=== PATIENT | male | born 1975 | race Caucasian/White ===

== ENCOUNTER 2019-05-20 07:15 | Outpatient (CLI) | payer MEDICAID, SELFPAY ==
--- NOTE | 2019-05-20 08:07 | DI.RAD_ITS ---
EXAM: XR LUMBAR SPINE COMPLETE INDICATION: LOWER BACK PAIN, M54.5. COMPARISON: No exams were available for comparison TECHNIQUE: 2D digital imaging was performed. FINDINGS: There are 5 lumbar type vertebral bodies. The disc spaces are well maintained. No spondylolysis, sp ondylolisthesis or scoliosis is seen. There are small endplate osteophytes. Mild degenerative chan es are seen of the SI joints. IMPRESSION: Mild degenerative disc changes.
== END 2019-05-20 07:35 ==
PROVIDERS: PCP Nurse Practitioner Family; Visit Provider Physician Assistant Medical
DX: M54.5 Low back pain (principal); M53.3 Sacrococcygeal disorders, not elsewhere classified; M51.36 Other intervertebral disc degeneration, lumbar region
CPT/HCPCS: 72110

== ENCOUNTER 2019-05-30 08:21 | Emergency (ER) | payer OTHER, MEDICAID, SELFPAY ==
[2019-05-30 08:24] VITALS: BP 103/72; PULSE 65; RESP 18; TEMP 36.5; O2SAT 96
--- NOTE | 2019-05-30 09:04 | ED.GENADUL_ITS ---
Discharge Plan Disposition Patient Disposition: HOME Condition: Good Discharge Details Chief Complaint: Nk/Back Pain Clinical Impression: Closed sacral fracture Primary Care Provider: Milad Santa ED Provider: Ginger Reynoso Home Meds and New Rx's Prescriptions: No Action naproxen sodium [Aleve] 220 MG tablet 440 mg PO DAILY RF: 0 No Known Home Meds RF: 0 Discharge Instructions Instructions: Sacral Fracture (ED) Additional Instructions: Motrin or Tylenol for discomfort if needed. Rest activities as tolerated. Please limit activities for 1 week for comfort. Ice for the first 5 days then may introduce heat to the area. Follow-up with orthopedic doctor for reevaluation. Return for any worsening, concerns or difficulty tolerating pain if needed sooner Stand Alone Forms: Work Release Referrals: Kristian Cardoza MD [ [facility] STAFF PHYSICIAN] - Medical Decision Making This is a very pleasant 43-year-old gentleman presenting to the emergency room after a slip and fall on ice this morning landing on his lower back. Patient presents for focal complaints in his lower back. On exam has lumbar midline tenderness as well as SI joint tenderness. Patient does have pain with straight leg raise. No red flags. No obvious neurologic deficits on exam. Patient denies any head or neck complaints. No other extremity complaints. No numbness, tingling or weakness of arms or legs immediately after since fall. Patient does report a history of chronic back pain recently diagnosed with arthritis. patient to take ibuprofen prior to arrival. Patient offered additional medication for comfort at this time and declines. Plan to obtain x- ray of lumbar spine and SI joints. Patient agrees with plan of care. X-ray and CT both Show question of nondisplaced sacral fracture superiorly. This does clinically correlate with patient's site of pain Spoke with Dr. Cardoza regarding patient's CT findings as well as x-ray. He recommends crutches although patient declines. He will follow-up with patient in the office as needed for follow-up purposes. Rice encouraged, use of donut encouraged. Offered muscle relaxant or narcotics and declines would prefer Motrin Tylenol management of his pain. 1 week work note provided. Encouraged rest. Again declined crutches and this is not an unstable fracture therefore that is not unreasonable. The patient was stable and requested discharge. Prior to discharge, my usual and customary return precautions were reviewed with the patient - this included follow-up instructions and reasons to return to the Emergency Department if conditions worsens, does not improve as expected, or other new concerns arise. HPI General Date/Time Provider Initiated Documentation: 05/30/19 08:54 . HPI Narrative: Is a 43-year-old patient presenting to the emergency room this evening after a slip and fall on ice this morning. Patient slipped, fell backwards striking his lower back on the ground. Patient denies striking his head or neck. Denies any extremity injury. 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 Patient does report chronic back pain but is concerned primarily with the fall this morning. Patient indicates his lower back and left side of his back as maximum site of tenderness. Patient denies any radicular symptoms into his legs. Denies any numbness, tingling or weakness. Patient reports when sitting 7 out of 10 pain when changing position and standing or walking 9 out of 10 pain. Patient did take ibuprofen this morning prior to arrival. Again no other sites of pain reported or extremity injuries. Related Data Home Medications Medication Instructions Recorded Confirmed Unknown [No Known Home Meds] 01/08/15 07/02/15 naproxen sodium [Aleve] 440 mg PO DAILY 12/31/16 05/30/19 Allergies Allergy/AdvReac Type Severity Reaction Status Date / Time No Known Drug Allergies Allergy Unverified 05/30/19 08:27 General Stated Complaint: Nk/Back Pain DOMENICA: 3 Review of Systems All systems reviewed & are unremarkable except as noted in HPI and below Constitutional Constitutional: Denies fatigue, Denies headache(s) and Denies weakness Eyes Eyes: Denies blurry vision and Denies diplopia ENT Ears, Nose, Mouth, and Throat: Denies vertigo, Denies dizziness, Denies headache(s) and Denies neck pain Musculoskeletal Musculoskeletal: Denies abnormal gait, Reports back pain, Denies deformity, Denies neck pain, Denies numbness and Denies tingling Neurologic Neurologic: Denies abnormal gait, Denies vertigo, Denies dizziness, Denies headache(s), Denies focal weakness, Denies numbness, Denies tingling, Denies paresthesias and Denies weakness Endocrine Endocrine: Denies fatigue ON LICENSE OF [facility] Medical History Asthma HX tobacco use Surgical History (Updated 02/18/18 @ 14:34 by [employer] [place]) Arthroplasty of knee right x 2 or 3 Arthroscopy, Shoulder right Social History Smoking/Tobacco Use Status: Former Tobacco Use Drug use: Never Exam Narrative Exam Narrative: CONST: Healthy appearing patient, in no acute distress. Well hydrated. Alert and oriented. NECK: Normal visual inspection. FROM. Trachea midline. No Midline tenderness. CHEST: Normal insepection of the chest. RESP: Normal respiratory effort. Speaking full sentences. No cough. No audible wheezing. No retractions. MUSCULOSKELETAL: Normal Gait. FROM of all extremities. Straight leg raise intact on the right without pain. Straight leg raise on the left with pain at approximately 90 degrees. DTRs intact and equal bilaterally. No foot drop. Sensation intact and equal bilaterally. Back: No cervical or thoracic pain with palpation along the midline of the spine. No step-offs. Moderate lumbar tenderness with palpation overlying the spine as well as left SI joint tenderness. No sciatic pain bilaterally. No obvious step-offs, ecchymosis or swelling. SKIN: Normal. Dry. No rashes. NEURO: Alert and awake. Speech clear. PSYCH: Normal affect. Cooperative. Course Vital Signs Vital signs: Vital Signs Temperature 36.5 C 05/30/19 08:24 Pulse 65 05/30/19 08:24 Respiratory Rate 18 05/30/19 08:24 Blood Pressure 103/72 05/30/19 08:24 Pulse Oximetry 96 05/30/19 08:24 Temperature 36.5 C 05/30/19 08:24 Temperature Source Skin 05/30/19 08:24 Pulse 65 05/30/19 08:24 Respiratory Rate 18 05/30/19 08:24 Respiratory Effort 05/30/19 08:28 Blood Pressure 103/72 05/30/19 08:24 Blood Pressure Position Sitting 05/30/19 08:24 Pulse Oximetry 96 05/30/19 08:24 Oxygen Delivery Method Room Air 05/30/19 08:24 Oxygen Flow Rate 0 05/30/19 08:24 Pain Level 8 05/30/19 08:24
--- NOTE | 2019-05-30 09:11 | DI.RAD_ITS ---
EXAM: XR LUMBAR SPINE COMPLETE INDICATION: Pain after fall. COMPARISON: XR LUMBAR SPINE COMPLETE from 05/20/2019 TECHNIQUE: 2D digital imaging was performed. FINDINGS: There is no evidence of fracture, spondylolysis or spondylolisthesis. There is no significant scolio sis. The disc spaces are well maintained. There are small endplate osteophytes. IMPRESSION: Mild degenerative changes. No acute abnormality.
--- NOTE | 2019-05-30 09:11 | DI.RAD_ITS ---
EXAM: XR SACROILIAC JOINTS INDICATION: pain, fall, left SI joint pain. COMPARISON: No exams were available for comparison TECHNIQUE: 2D digital imaging was performed. FINDINGS: SI joints are not widened. No fracture is identified. IMPRESSION: Negative sacroiliac joints.
--- NOTE | 2019-05-30 09:33 | DI.VRAD_ITS ---
PROCEDURE INFORMATION: Exam: XR Bilateral Sacroiliac Joints, 3 or More Views Exam date and time: 05/30/2019 9:18 AM Age: 43 years old Clinical indication: Other: Pain after fall TECHNIQUE: Imaging protocol: XR Bilateral XR of the sacroiliac joints, 3 or more views. COMPARISON: No relevant prior studies available. FINDINGS: Bones/joints: Lucency through the superior aspect of the left golden sacrum may represent nondisplaced fracture. Degenerative changes in the sacroiliac joints Soft tissues: Normal. IMPRESSION: Lucency through the superior aspect of the left golden sacrum may represent nondisplaced fracture. Dictated and Authenticated by: Nolan Morris MD. Ordering:TYRON Miles MD
--- NOTE | 2019-05-30 09:35 | DI.VRAD_ITS ---
PROCEDURE INFORMATION: Exam: XR Lumbosacral Spine, 4 or 5 Views Exam date and time: 05/30/2019 9:17 AM Age: 43 years old Clinical indication: Injury or trauma; Initial encounter; Blunt trauma (contusions or hematomas); Injury details: Chronic low back pain exacerbated by fall today TECHNIQUE: Imaging protocol: XR of the lumbosacral spine, 4 or 5 views. COMPARISON: CR XR LUMBAR SPINE COMPLETE 05/20/2019 8:07 AM FINDINGS: Vertebrae: There is no evidence of acute fracture.There is no evidence of malalignment or dislocation. Intervertebral disc spaces are maintained.. Minimal anterior osteophyte formation Soft tissues: Normal. IMPRESSION: 1. There is no evidence of acute fracture.There is no evidence of malalignment or dislocation. 2. Intervertebral disc spaces are maintained. Dictated and Authenticated by: Nolan Morris MD. Ordering:TYRON Miles MD
[2019-05-30] MEDS: Acetaminophen 500 MG TAB 1000 MG PO (10:06)
--- NOTE | 2019-05-30 11:37 | DI.CT_ITS ---
EXAM: CT PELVIC WO CLINICAL HISTORY: r/o superior sacrum fracture, fall TECHNIQUE: Noncontrast COMPARISON: No exams were available for comparison FINDINGS: No fracture is identified. The SI joints and pubic symphysis appear intact. No soft tissue hematom a is seen. Bladder, prostate and bowel are unremarkable. IMPRESSION: Negative CT of the pelvis.
[2019-05-30 11:45] VITALS: BP 116/77; RESP 16; O2SAT 99
--- NOTE | 2019-05-30 11:50 | DI.VRAD_ITS ---
PROCEDURE INFORMATION: Exam: CT Pelvis Without Contrast; Skeletal Exam date and time: 05/30/2019 11:34 AM Age: 43 years old Clinical indication: Other: R/O superior sacrum fracture, fall TECHNIQUE: Imaging protocol: Computed tomography images of the pelvis without contrast. Exam focused on the skeletal structures. Radiation optimization: All CT scans at this facility use at least one of these dose optimization techniques: automated exposure control; mA and/or kV adjustment per patient size (includes targeted exams where dose is matched to clinical indication); or iterative reconstruction. COMPARISON: CR XR LUMBAR SPINE COMPLETE 05/30/2019 9:11 AM. Sacral series from May 30 demonstrated possible fracture of the superior left golden sacrum. FINDINGS: Stomach and bowel: Bowel wall thickening in the colon may represent colitis versus decompressed bowel. Appendix: Normal appendix Bones/joints: Sacral series from May 30 demonstrated possible nondisplaced fracture of the superior left golden sacrum. There is a lucency in the same area on a few of the coronal images. Image 105 -107. This may represent artifact. Subtle nondisplaced fracture included in the differential but less likely. Soft tissues: Unremarkable. IMPRESSION: 1. Sacral series from May 30 demonstrated possible nondisplaced fracture of the superior left golden sacrum. There is a lucency in the same area on a few of the coronal images. Image 105 -107. This may represent artifact. Subtle nondisplaced fracture included in the differential but less likely. 2. Bowel wall thickening in the colon may represent colitis versus decompressed bowel. Dictated and Authenticated by: Nolan Morris MD. Ordering:TYRON Miles MD
== END 2019-05-30 12:35 | disposition home or self-care (01) ==
PROVIDERS: Emergency Provider Physician Assistant; PCP Physician Assistant Medical
DX: S32.10XA Unspecified fracture of sacrum, initial encounter for closed fracture (principal); W00.0XXA Fall on same level due to ice and snow, initial encounter
CPT/HCPCS: 99285; 72110; 72192; 72202; 99284

== ENCOUNTER 2021-06-25 21:56 | Outpatient (REF) | payer MEDICAID, SELFPAY ==
[2021-06-25 21:28] LABS: HCT 45.6 % (40.0-50.0); MCHC 32.9 % (32.0-36.0); MPV 9.9 fL (8.0-11.0); Platelet Count 259 10^3/uL (130-400); RBC 5.18 10^6/uL (4.36-5.78); RDW 11.9 % (11.8-14.1); RDW-SD 38.7 fL; WBC 5.78 10^3/uL (4.4-10.8)
[2021-06-25 21:39] LABS: ALT 31 U/L (16-63); AST 20 U/L (15-37); Albumin 4.1 g/dL (3.4-5.0); Alkaline Phosphatase 67 U/L (46-116); Anion Gap 8.9 mmol/L (3-11); BUN 13 mg/dL (7-18); Bilirubin, Total 0.4 mg/dL (0.2-1.0); CO2 27.1 mmol/L (21.0-32.0); CREATININE 1.2 mg/dL (0.70-1.30); Calcium 9.1 mg/dL (8.5-10.1); Chloride 105 mmol/L (98-107); Glucose 130 mg/dL (74-106); Lipase 97 U/L (73-393); Potassium 3.8 mmol/L (3.5-5.1); Sodium 141 mmol/L (136-145); Total Protein 7.4 g/dL (6.4-8.2)
== END 2021-06-25 21:57 | disposition home or self-care (01) ==
LOC: LBN 21:56
PROVIDERS: PCP Physician Assistant Medical; Visit Provider Nurse Practitioner Family
DX: R10.32 Left lower quadrant pain (principal); R82.998 Other abnormal findings in urine
CPT/HCPCS: 80053; 83690; 85027; 87086

== ENCOUNTER 2021-06-30 08:23 | Emergency (ER) | payer MEDICAID, SELFPAY ==
[2021-06-30] VITALS (13 sets, daily range): BP systolic 120–136; BP diastolic 69–79; PULSE 70–86; RESP 16; TEMP 37.1; O2SAT 95–97
--- NOTE | 2021-06-30 09:00 | DI.CT_ITS ---
Exam(s) CT ABDOMEN PELVIS W EXAM: CT ABDOMEN PELVIS W CLINICAL HISTORY: RLQ pain TECHNIQUE: Imaging Protocol: Axial computed tomography images with coronal and sagittal reformatted images were created and reviewed CONTRAST MATERIAL: Intravenous: Omnipaque 350 Contrast volume:100 mL Oral: No COMPARISON: CT CT PELVIC WO from 05/30/2019 FINDINGS: ABDOMEN: Lung Bases: Linear atelectasis or scarring is seen in the lung bases. Liver: Normal density. No measurable mass. Portal, Superior Mesenteric, and Splenic Veins: Unremarkable. Gallbladder and Biliary Tract: No radiodense calculus or dilation. Pancreas: Normal density, no abnormal calcifications or inflammatory process. Spleen: Normal. Adrenals: No masses seen. Kidneys: Normal size, contour and axis. No radiodense stones or obstructive uropathy. No masses seen. Abdominal Aorta: Abdominal portion non-dilated. Bowel: No obstruction or bowel wall thickening. There is mild fatty infiltration seen in the barnett o f the duodenum, ileum and cecum. There is a question of mild Pamela inflammatory changes around the di stal ileum. Appendix is unremarkable. There are few scattered diverticula but no evidence of acute d iverticulitis. Peritoneal Cavity: No ascites, collection or mesenteric inflammatory response. No free air. Lymph Nodes: Within normal limits. Bones: Within normal limits for the patient's age. Soft Tissues: Unremarkable. PELVIS: Bladder: Symmetric distention, no gross wall thickening. Reproductive Organs: Unremarkable as visualized. Lymph Nodes: Within normal limits. Bones: Within normal limits for the patient's age. IMPRESSION: 1. Findings suspicious for inflammatory bowel disease seen in the distal ileum. Please correlate wit h the patient's clinical history and symptoms. 2. Normal appendix. RADIATION DOSE DELIVERED: 995.41mGy.cm Total DLP DATA REPOSITORY: All CT scans at this facility are submitted to the National Radiology Data Registry (NRDR) Dose Index Registry (DIR) with the [employer] (ACR). RADIATION OPTIMIZATION: All CT scans at this facility use at least one of these dose optimization te chniques: automated exposure control; mA and/or kV adjustment per patient size (includes targeted exa ms where dose is matched to clinical indication); or iterative reconstruction.
[2021-06-30 09:01] LABS: Abs Immature Grans 0.02 10^3/uL (0.0-0.06); Absolute Basophil Count 0.03 10^3/uL (0.0-0.2); Absolute Eosinophil Count 0.13 10^3/uL (0.0-0.7); Absolute Lymphocyte Count 1.34 10^3/uL (1.2-3.4); Absolute Monocyte Count 0.71 10^3/uL (0.1-0.8); Absolute Neutrophil Count 4.42 10^3/uL (1.2-6.7); Basophils % 0.5; HCT 46.4 % (40.0-50.0); HGB 15.9 g/dL (13.5-17.5); Immature Grans % 0.3; Lymphocytes % 20.2; MCH 29.6 pg (27.0-33.0); MCHC 34.3 % (32.0-36.0); MCV 86.4 fL (80-95); MPV 9.6 fL (8.0-11.0); Monocytes % 10.7; Neutrophils % 66.3; Nucleated RBC 0 %; Platelet Count 248 10^3/uL (130-400); RBC 5.37 10^6/uL (4.36-5.78); RDW 11.7 % (11.8-14.1); RDW-SD 37.2 fL; WBC 6.65 10^3/uL (4.4-10.8)
[2021-06-30 09:06] LABS: Bilirubin Negative (Negative); Blood Negative (Negative); Clarity Clear (Clear); Glucose Negative (Negative); Ketones Negative (Negative); Leukocyte Esterase Negative (Negative); Nitrite Negative (Negative); Urobilinogen 0.2 EU/dL (Up TO 0.2)
[2021-06-30 09:16] LABS: ALT 28 U/L (16-63); AST 15 U/L (15-37); Albumin 3.8 g/dL (3.4-5.0); Alkaline Phosphatase 73 U/L (46-116); Anion Gap 10.5 mmol/L (3-11); BUN 15 mg/dL (7-18); Bilirubin, Total 0.6 mg/dL (0.2-1.0); C-Reactive Protein 1.91 mg/dL (0.0-0.3); CO2 25.5 mmol/L (21.0-32.0); Chloride 103 mmol/L (98-107); Glucose 100 mg/dL (74-106); Sodium 139 mmol/L (136-145); Total Protein 7.9 g/dL (6.4-8.2)
[2021-06-30] MEDS: Omnipaque 350 MG/ML 100 ML BTL IJ (09:24)
[2021-06-30] MEDS: Normal Saline Flush 10 ML SYR IVP (09:28)
[2021-06-30] MEDS: Normal Saline 1,000 ML 1000 ML IV (09:35)
[2021-06-30] MEDS: MORPHine 4 MG/ML SYR IVP (09:35)
--- NOTE | 2021-06-30 09:42 | DI.VRAD_ITS ---
PROCEDURE INFORMATION: Exam: CT Abdomen And Pelvis With Contrast Exam date and time: 06/30/2021 9:10 AM Age: 45 years old Clinical indication: Other: Rlq pain TECHNIQUE: Imaging protocol: Computed tomography of the abdomen and pelvis with contrast. Radiation optimization: All CT scans at this facility use at least one of these dose optimization techniques: automated exposure control; mA and/or kV adjustment per patient size (includes targeted exams where dose is matched to clinical indication); or iterative reconstruction. Contrast material: OMNIPAQUE 350; Contrast volume: 100 ml; Contrast route: INTRAVENOUS (IV); COMPARISON: CT PELVIC WO 05/30/2019 11:37 AM FINDINGS: Lungs: Streaky bibasilar opacities favoring atelectasis. Heart: Heart size is normal. No pericardial effusion. Liver: Normal. No mass. Gallbladder and bile ducts: Normal. No calcified stones. No ductal dilation. Pancreas: Normal. No ductal dilation. Spleen: Small splenule. Normal appearance of the spleen. Adrenal glands: Normal. No mass. Kidneys and ureters: Normal. No hydronephrosis. Stomach and bowel: Stomach is unremarkable. There is mild, patchy fatty infiltration of the wall of the duodenum. Fatty infiltration of the wall of the ileum with mild mucosal hyperemia near the distal ileum with mild pericecal inflammatory changes. There are few small colonic diverticula without evidence of diverticulitis. Appendix: Appendix is normal. Intraperitoneal space: No free air. No significant fluid collection. Vasculature: There is very mild inflammatory appearance of the retroperitoneum about the aorta IVC. Lymph nodes: No enlarged lymph nodes. Urinary bladder: Unremarkable as visualized. Reproductive: Prostate calcifications. Bones/joints: Mild degenerative changes of the spine and hips. No acute osseous findings. Soft tissues: Unremarkable. IMPRESSION: 1. Normal appendix. 2. Fatty infiltration noted within the duodenum, ileum, and cecum. There is mild mucosal hyperemia of the distal ileum with some mild pericecal inflammatory changes. Correlate for history of Crohn's disease. 3. Mild soft tissue stranding posterior to the aorta and IVC without lymphadenopathy. Findings may be reactive in the setting of chronic inflammatory bowel disease or represent early retroperitoneal fibrosis. Dictated and Authenticated by: Charley Mcdowell MD. Ordering:SALVADOR Davis MD
--- NOTE | 2021-06-30 10:26 | NUR.NOTE ---
Susan would like the patient to be evaluated by PCP Milad Santa, next available appointment for Collitis.
--- NOTE | 2021-06-30 10:51 | ED.GENADUL_ITS ---
Discharge Plan Disposition Patient Disposition: HOME Condition: Stable Discharge Details Clinical Impression: Abdominal pain, Colitis Primary Care Provider: Milad Santa ED Provider: Susan Cristina Home Meds and New Rx's Prescriptions: New prednisone 10 mg tablet 10 mg PO DAILY Qty: 38 0RF Rx Instructions: take 4 tablets daily for 7days followed by 2 tablets for 3 days followed by 1 tablet for 4 days and then discontinue oxycodone 5 mg tablet 5 mg PO Q8H PRNQty: 6 0RF Continued naproxen sodium [Aleve] 220 MG tablet 440 mg PO DAILY 0RF amoxicillin 500 mg Capsule 500 mg PO BID 0RF Discharge Instructions Instructions: Abdominal Pain (ED) Additional Instructions: Please follow-up with the surgeon listed below for colonoscopy, this is very important Take the prednisone as prescribed Please bring a stool sample back to our lab to be tested, this will be a better test to determine whether or not you may have inflammatory bowel disease, the concern is you may have Crohn's, however colonoscopy and stool studies can determine this Please also follow-up with your doctor Please return immediately should you have worsening pain, fever, or with any new or worsening symptoms Referrals: Milad Santa PA [Primary Care Provider] - Marisol Tilley DO [ NON-[facility] STAFF PHYSICIAN] - 1 day Discharge Data Discharge Date/Time-TO BE ENTERED AT DEPARTURE: 06/30/21 11:25 Medical Decision Making Patient appears well, his diagnostic lab do not show significant acute abnormality, no leukocytosis, no anemia CRP is mildly elevated, this could be consistent with inflammatory bowel disease as evidenced on patient's CT abdomen and pelvis per radiology interpretation in my review Patient has not been formally diagnosed with IBD but has had been having recurrent abdominal pain for the past several years and does not regularly visit his PCP Discussed admission for IV steroids given his level of discomfort, however patient has declined He prefers to try taper of outpatient prednisone which I have prescribed referred to surgery for colonoscopy He is also given a lab slip to return fecal calprotectin for further evaluation discharged home in stable condition with stable vitals offered admission on 2 separate occasions and has declined, he is alert, oriented, of decisional capacity I have given him a small amount of opiate analgesia and we discussed risk associated with taking opiate medications Given the threshold to return with new or worsening complaints Medical Records Medical records reviewed: Yes I reviewed the patient's medical records. Lab Data Lab results reviewed: Yes I reviewed the patient's lab results. HPI General Date/Time Provider Initiated Documentation: 06/30/21 08:47 . HPI Narrative: This 45-year-old gentleman presents with right lower quadrant pain that started Friday. He has had left lower quadrant pain for the past 2 weeks. He has had intermittent symptoms similar to this but not as persistent over the course of the past 10 years. He denies any blood in stool today. He denies any new mucus in the stool. He describes the pain as sharp. He denies any fever or chills. Loss of movement yesterday. He has had diarrhea intermittently but nothing in the past Related Data Home Medications Medication Instructions Recorded Confirmed naproxen sodium 220 mg tablet 440 mg PO DAILY 12/31/16 06/30/21 (Aleve) amoxicillin 500 mg capsule 500 mg PO BID 06/30/21 06/30/21 oxycodone 5 mg tablet 5 mg PO Q8H PRN #6 tab 06/30/21 prednisone 10 mg tablet 10 mg PO DAILY #38 tab 06/30/21 Previous Rx's Medication Instructions Recorded oxycodone 5 mg tablet 5 mg PO Q8H PRN #6 tab 06/30/21 prednisone 10 mg tablet 10 mg PO DAILY #38 tab 06/30/21 Allergies Allergy/AdvReac Type Severity Reaction Status Date / Time No Known Drug Allergies Allergy Unverified 06/30/21 08:34 General Stated Complaint: Abd Prob DOMENICA: 3 Review of Systems All systems reviewed & are unremarkable except as noted in HPI and below PFSH All Active Problems (Updated 06/30/21 @ 10:32 by ASCENCION Sainz) Abdominal pain (Acute) Colitis (Acute) Medical History (Updated 06/30/21 @ 10:32 by ASCENCION Sainz) Asthma HX tobacco use Surgical History (Updated 02/18/18 @ 14:34 by Almondy DE) Arthroplasty of knee right x 2 or 3 Arthroscopy, Shoulder right Social History Smoking/Tobacco Use Status: Former Tobacco Use Smoking risk assessment performed?: Yes Alcohol Intake: current Alcohol Intake frequency: a few times a month Alcohol type: beer Drug use: Never Substance use type: does not use Do you feel safe at home: Yes Do you feel safe in your relationship?: Yes Exam Const General: cooperative and comfortable Eyes Sclera: sclerae normal Resp Effort & Inspection: normal respiratory effort Cardio Rate: regular rate GI Other: Right lower quadrant abdominal tenderness, no rebound or guarding, mild left lower quadrant abdominal tenderness No abdominal bruit, or pulsatile mass Skin General skin exam: no rashes or lesions noted Neuro General: patient alert and patient oriented x3 Extrem Other: Distal pulses intact Course Vital Signs Vital signs: Vital Signs Temperature 37.1 C 06/30/21 08:28 Pulse 86 06/30/21 08:28 Respiratory Rate 16 06/30/21 08:28 Blood Pressure 120/69 06/30/21 08:28 Pulse Oximetry 97 06/30/21 08:28 Temperature 37.1 C 06/30/21 08:28 Temperature Source Temporal Artery Scan 06/30/21 08:28 Pulse 71 06/30/21 10:16 Respiratory Rate 16 06/30/21 08:28 Respiratory Effort Non-Labored 06/30/21 08:32 Blood Pressure 130/74 06/30/21 10:16 Blood Pressure Mean 88 06/30/21 10:16 Blood Pressure Position Sitting 06/30/21 08:28 Pulse Oximetry 97 06/30/21 10:16 Oxygen Delivery Method Room Air 06/30/21 08:28 Oxygen Flow Rate 0 06/30/21 08:28 Pain Level 5 06/30/21 09:35 Lab/Test Results Lab/Test Results: Laboratory Tests Range/Units 06/30/21 06/30/21 06/30/21 08:40 08:40 08:54 WBC (4.4-10.8) 10^3/uL 6.65 RBC (4.36-5.78) 10^6/uL 5.37 Hgb (13.5-17.5) g/dL 15.9 Hct (40.0-50.0) % 46.4 MCV (80-95) fL 86.4 MCH (27.0-33.0) pg 29.6 MCHC (32.0-36.0) % 34.3 RDW (11.8-14.1) % 11.7 L Plt Count (130-400) 10^3/uL 248 MPV (8.0-11.0) fL 9.6 Immature Gran % 0.3 Neutrophils % 66.3 Lymphocytes % 20.2 Monocytes % 10.7 Eosinophils % 2.0 Basophils % 0.5 Nucleated RBC % % 0 Absolute Neutrophils (1.2-6.7) 10^3/uL 4.42 Absolute Lymphocytes (1.2-3.4) 10^3/uL 1.34 Absolute Monocytes (0.1-0.8) 10^3/uL 0.71 Absolute Eosinophils (0.0-0.7) 10^3/uL 0.13 Absolute Basophils (0.0-0.2) 10^3/uL 0.03 Sodium (136-145) mmol/L 139 Potassium (3.5-5.1) mmol/L 4.0 Chloride (98-107) mmol/L 103 Carbon Dioxide (21.0-32.0) mmol/L 25.5 Anion Gap (3-11) mmol/L 10.5 BUN (7-18) mg/dL 15 Creatinine (0.70-1.30) mg/dL 1.0 Estimated GFR/1.73 m2 (mL/min/1.73m2) >= 60.00 Glucose (74-106) mg/dL 100 Calcium (8.5-10.1) mg/dL 9.0 Total Bilirubin (0.2-1.0) mg/dL 0.6 AST (15-37) U/L 15 ALT (16-63) U/L 28 Alkaline Phosphatase (46-116) U/L 73 C-Reactive Protein (0.0-0.3) mg/dL 1.91 H Total Protein (6.4-8.2) g/dL 7.9 Albumin (3.4-5.0) g/dL 3.8 Urine Color (Yellow) Yellow Urine Clarity (Clear) Clear Urine pH (5-8) 7.0 Ur Specific [place] (1.005-1.025) 1.020 Urine Protein (Negative) mg/dL Negative Urine Ketones (Negative) mg/dL Negative Urine Blood (Negative) Negative Urine Nitrite (Negative) Negative Urine Bilirubin (Negative) Negative Urine Urobilinogen (Up TO 0.2) EU/dL 0.2 Ur Leukocyte Esterase (Negative) Negative Urine Glucose (Negative) mg/dL Negative PAWSS Have you Been Recently Intoxicated or Drunk Within the Last 30 days?: No Have you Ever Experienced Previous Episodes of Alcohol Withdrawal?: No Have you ever Experienced Withdrawal Seizures?: No Have you ever Experienced Delirium Tremens(DT)s?: No Have you ever undergone Alcohol Rehabilitation Treatment (i.e, inpt ot outpatient treatment programs)?: No Have you ever Experienced Blackouts?: No Have you ever Combined Alcohol with other Downers within the last 90 days?: No Have you ever Combined Alcohol with any other Substance of Abuse during the last 90 days?: No Positive Blood Alcohol level on Presentation? [PCS.BAL]: No Evidence of Increased Autonomic Activity (i.e. HR>120, tremor, sweating, agitation, nausea)?: No Result: 0
== END 2021-06-30 11:25 | disposition home or self-care (01) ==
PROVIDERS: Emergency Provider Physician Assistant; PCP Physician Assistant Medical
DX: R10.31 Right lower quadrant pain (principal); K52.9 Noninfective gastroenteritis and colitis, unspecified
CPT/HCPCS: 36415; 80053; 96361; 96374; 99285; 74177; 81003; 85025; 86140; 99284; J2270; J3490

== ENCOUNTER 2021-07-02 11:13 | Emergency (ER) | payer MEDICAID, SELFPAY ==
[2021-07-02 11:24] VITALS: BP 145/85; PULSE 65; RESP 16; TEMP 36.4; O2SAT 97
--- NOTE | 2021-07-02 11:45 | ED.GENADUL_ITS ---
Discharge Plan Disposition Patient Disposition: HOME Condition: Stable Discharge Details Clinical Impression: Abdominal pain Primary Care Provider: Milad Santa ED Provider: Karen Don Home Meds and New Rx's Prescriptions: Continued naproxen sodium [Aleve] 220 MG tablet 440 mg PO DAILY 0RF prednisone 10 mg tablet 10 mg PO DAILY Qty: 38 0RF Rx Instructions: take 4 tablets daily for 7days followed by 2 tablets for 3 days followed by 1 tablet for 4 days and then discontinue oxycodone 5 mg tablet 5 mg PO Q8H PRNQty: 6 0RF Discharge Instructions Instructions: Abdominal Pain (ED) Additional Instructions: Continue to take the prednisone as previously prescribed. Clear liquids for the next 2 to 3 days. After that a bland diet stay away from anything fried, fatty, dairy. Stay away from eating spicy. Please keep your follow-up appointment with general surgery on the as previously scheduled. Follow up with primary care provider in 3-5 days. Return to ED sooner if any worsening or concerns. Increase oral fluids. Please take Tylenol or Ibuprofen with food every 4-6 hours as needed for pain and swelling. Stand Alone Forms: Work Release Referrals: Milad Santa PA [Primary Care Provider] - 3 days Discharge Data Discharge Date/Time-TO BE ENTERED AT DEPARTURE: 07/02/21 15:59 Medical Decision Making 45-year-old male presents to the ER for the second time in 3 days with continued lower bilateral abdominal pain and constipation. Patient states he has not had a bowel movement in over 48 hours. He was seen 2 days ago and was diagnosed with colitis and was prescribed prednisone which he has been taking as directed. Discussed treatment options with patient who verbalizes understanding. I did discuss reCT with oral contrast which he agrees to. Labs will be redrawn to rule out any worsening. Urinalysis 2 days ago showed no leukocytosis or nitrites. He did have a slightly elevated CRP 2 days ago with a value of 1.91. Labs are largely improved except for white blood cell count was just slightly elevated at 10.91, potassium was 3.4, glucose 129, C-reactive is improved at 0.89. The elevated white blood cell count could be due to the prednisone that patient has been taking. Lipase is 61. CT results are noted below. CT CT ABDOMEN PELVIS W from 06/30/2021 FINDINGS: ABDOMEN: Lung Bases: Normal where visualized. Liver: Normal density. No measurable mass. Gallbladder and biliary tract: No radiodense calculus or dilation. Pancreas: Normal density, no abnormal calcifications or inflammatory process. Spleen: Normal. Kidneys: Normal size, contour and axis. No radiodense stones or obstructive uropathy. No masses seen. Adrenal glands: No masses seen. Abdominal Aorta: Abdominal portion non-dilated. PELVIS: Bladder: No gross wall thickening. No calculi.No focal mass. Bowel: Fat deposition in the distal and terminal ileum could be related to previous episodes of inflammation. Stable appearance when compared with 2019. No current evidence of inflammation. No obstruction . Appendix normal.Mild sigmoid diverticulosis. Moderate quantity of stool. Peritoneal cavity: No ascites, collection or mesenteric inflammatory response. Bones: Within normal limits for age. Reproductive organs: Within normal limits. Lymph nodes: Unremarkable. Impression: Fat deposition in the wall of the distal and terminal ileum may be related to prior episodes of inflammation. Findings appear stable when compared with 2019. No acute abnormality is identified.. At this time it does not appear there is any acute process or need for admission at this time. I will encourage to keep general surgery follow-up on the . Patient verbalized understanding, this text was generated using [employer] dictation system, please disregard any oddities of phrase or misspellings. HPI General Mode of arrival: ambulatory . Date/Time Provider Initiated Documentation: 07/02/21 11:21 . Limitations to Documentation: no limitations . Information obtained by: patient, RN notes reviewed and old records reviewed . HPI Narrative: 45-year-old male presents to the ER for the second time in 3 days with continued lower bilateral abdominal pain and constipation. Patient states he has not had a bowel movement in over 48 hours. He was seen 2 days ago and was diagnosed with colitis and was prescribed prednisone which he has been taking as directed. He did take an oxycodone this morning. He denies any vomiting, fever or problems urinating. He states pain radiates into his lower back intermittently. He reports he did call general surgery and has an appointment on July 12. Related Data Home Medications Medication Instructions Recorded Confirmed naproxen sodium 220 mg tablet 440 mg PO DAILY 12/31/16 07/02/21 (Aleve) oxycodone 5 mg tablet 5 mg PO Q8H PRN #6 tab 06/30/21 07/02/21 prednisone 10 mg tablet 10 mg PO DAILY #38 tab 06/30/21 07/02/21 Previous Rx's Medication Instructions Recorded oxycodone 5 mg tablet 5 mg PO Q8H PRN #6 tab 06/30/21 prednisone 10 mg tablet 10 mg PO DAILY #38 tab 06/30/21 Allergies Allergy/AdvReac Type Severity Reaction Status Date / Time No Known Drug Allergies Allergy Unverified 07/02/21 11:28 General Stated Complaint: Abd Prob DOMENICA: 3 Review of Systems All systems reviewed & are unremarkable except as noted in HPI and below PFSH All Active Problems (Updated 07/02/21 @ 15:31 by Karen Don) Abdominal pain (Acute) Colitis (Acute) Medical History Asthma HX tobacco use Surgical History Arthroplasty of knee right x 2 or 3 Arthroscopy, Shoulder right Social History Smoking/Tobacco Use Status: Former Tobacco Use Smoking risk assessment performed?: Yes Alcohol Intake: current Alcohol Intake frequency: a few times a month Alcohol type: beer Drug use: Never Substance use type: does not use Do you feel safe at home: Yes Do you feel safe in your relationship?: Yes Exam Narrative Exam Narrative: Constitutional: Alert and oriented x3. Appears stated age. Normal body habitus. Head: Normocephalic, no trauma. Eyes: Pupils PERRL, Red reflex noted, EOM's intact. Eyelids symmetrical without lesions, discharge, or swelling. ENT: Bilateral TM's WNL, External ear normal to inspection, no mastoid TTP, swelling, or erythema, Nasal turbinates WNL, no nasal discharge. Normal dentition, Posterior pharynx WNL, no exudate. Chest: RRR, Normal S1, S2, distal pulses intact. Resp: Lungs clear to auscultation bilaterally, no wheezes, rales, or rhonchi. Abdomen: Soft, non-distended, hypoactive bowel sounds all 4 quadrants. Mild tenderness with palpation to right lower quadrant left lower quadrant. Musculoskeletal: Normal gait, 5/5 strength to all four extremities. Skin: No suspicious rashes or lesions. Capillary refill less than 2 sec. Neurologic: Cranial nerves II-XII intact. Alert and oriented x 3. Motor: No deficits noted. Sensory: Intact bilaterally all 4 extremities. Reflexes: DTR's intact bilaterally.. Hematologic/Lymphatic: No ecchymosis, no lymphadenopathy. Course Vital Signs Vital signs: Vital Signs Temperature 36.4 C 07/02/21 11:24 Pulse 65 07/02/21 11:24 Respiratory Rate 16 07/02/21 11:24 Blood Pressure 145/85 H 07/02/21 11:24 Pulse Oximetry 97 07/02/21 11:24 Temperature 36.4 C 07/02/21 11:24 Temperature Source Oral 07/02/21 11:24 Pulse 65 07/02/21 11:24 Respiratory Rate 16 07/02/21 11:24 Respiratory Effort 07/02/21 11:24 Blood Pressure 145/85 H 07/02/21 11:24 Blood Pressure Position Sitting 07/02/21 11:24 Pulse Oximetry 97 07/02/21 11:24 Oxygen Delivery Method Room Air 07/02/21 11:24 Oxygen Flow Rate 0 07/02/21 11:24 Pain Level 4 07/02/21 11:40
[2021-07-02] MEDS: Normal Saline 1,000 ML 1000 ML IV (11:57)
[2021-07-02 12:02] LABS: Abs Immature Grans 0.03 10^3/uL (0.0-0.06); Absolute Basophil Count 0.03 10^3/uL (0.0-0.2); Absolute Eosinophil Count 0.03 10^3/uL (0.0-0.7); Absolute Lymphocyte Count 1.61 10^3/uL (1.2-3.4); Basophils % 0.3; Eosinophils % 0.3; HCT 44.9 % (40.0-50.0); HGB 15.1 g/dL (13.5-17.5); Immature Grans % 0.3; Lymphocytes % 14.8; MCHC 33.6 % (32.0-36.0); MCV 86.3 fL (80-95); MPV 9.4 fL (8.0-11.0); Monocytes % 8.2; Neutrophils % 76.1; Nucleated RBC 0 %; Platelet Count 262 10^3/uL (130-400); RDW 11.9 % (11.8-14.1); RDW-SD 37.8 fL; WBC 10.91 10^3/uL (4.4-10.8)
[2021-07-02 12:03] LABS: Absolute Monocyte Count 0.89 10^3/uL (0.1-0.8)
[2021-07-02 12:15] LABS: ALT 23 U/L (16-63); AST 8 U/L (15-37); Albumin 3.6 g/dL (3.4-5.0); Alkaline Phosphatase 63 U/L (46-116); Anion Gap 9.6 mmol/L (3-11); BUN 13 mg/dL (7-18); Bilirubin, Total 0.4 mg/dL (0.2-1.0); C-Reactive Protein 0.89 mg/dL (0.0-0.3); CO2 26.4 mmol/L (21.0-32.0); Chloride 105 mmol/L (98-107); Glucose 129 mg/dL (74-106); Lipase 61 U/L (73-393); Potassium 3.4 mmol/L (3.5-5.1); Sodium 141 mmol/L (136-145); Total Protein 7.7 g/dL (6.4-8.2)
[2021-07-02] MEDS: Breeza Beverage 473 ML BTL PO ×2 (13:21→13:22)
[2021-07-02] MEDS: Omnipaque 350 MG/ML 50 ML BTL PO (13:21)
[2021-07-02 13:52] VITALS: BP 128/71; PULSE 65; RESP 18; TEMP 36.5; O2SAT 95
[2021-07-02] MEDS: Omnipaque 350 MG/ML 100 ML BTL IJ (14:59)
--- NOTE | 2021-07-02 15:03 | DI.CT_ITS ---
Exam(s) CT ABDOMEN PELVIS W EXAM: CT ABDOMEN PELVIS W CLINICAL HISTORY: Constipation, Worsening abd pain. TECHNIQUE: Imaging Protocol: Axial computed tomography images with coronal and sagittal reformatted images were created and reviewed CONTRAST MATERIAL: Intravenous: Omnipaque 350 Contrast volume:100 ml Oral: /yes COMPARISON: CT CT PELVIC WO from 05/30/[address] ABDOMEN PELVIS W from 06/30/2021 FINDINGS: ABDOMEN: Lung Bases: Normal where visualized. Liver: Normal density. No measurable mass. Gallbladder and biliary tract: No radiodense calculus or dilation. Pancreas: Normal density, no abnormal calcifications or inflammatory process. Spleen: Normal. Kidneys: Normal size, contour and axis. No radiodense stones or obstructive uropathy. No masses seen. Adrenal glands: No masses seen. Abdominal Aorta: Abdominal portion non-dilated. PELVIS: Bladder: No gross wall thickening. No calculi.No focal mass. Bowel: Fat deposition in the distal and terminal ileum could be related to previous episodes of infla mmation. Stable appearance when compared with 2019. No current evidence of inflammation. No obstru ction . Appendix normal.Mild sigmoid diverticulosis. Moderate quantity of stool. Peritoneal cavity: No ascites, collection or mesenteric inflammatory response. Bones: Within normal limits for age. Reproductive organs: Within normal limits. Lymph nodes: Unremarkable. Impression: Fat deposition in the wall of the distal and terminal ileum may be related to prior episodes of infla mmation. Findings appear stable when compared with 2019. No acute abnormality is identified.. RADIATION DOSE DELIVERED: 1,248.99mGy.cm Total DLP DATA REPOSITORY: All CT scans at this facility are submitted to the National Radiology Data Registry (NRDR) Dose Index Registry (DIR) with the [employer] (ACR). RADIATION OPTIMIZATION: All CT scans at this facility use at least one of these dose optimization te chniques: automated exposure control; mA and/or kV adjustment per patient size (includes targeted exa ms where dose is matched to clinical indication); or iterative reconstruction.
[2021-07-02 15:40] VITALS: BP 122/74; PULSE 75; RESP 16; TEMP 36.6; O2SAT 96
== END 2021-07-02 15:59 | disposition home or self-care (01) ==
PROVIDERS: Emergency Provider Registered Nurse Emergency; PCP Physician Assistant Medical
DX: R10.31 Right lower quadrant pain (principal); R10.32 Left lower quadrant pain
CPT/HCPCS: 36415; 80053; 83690; 96360; 99285; 74177; 83735; 85025; 86140; 99283; J3490; Q9967

== ENCOUNTER 2021-07-23 01:37 | Outpatient (CLI) | payer MEDICAID, SELFPAY ==
--- NOTE | 2021-07-23 11:00 | ETT_ITS ---
APPROVED REPORT Exam: Exercise Treadmill Patient Location: Out-Patient Room/Bed: Stress Nurse: Chanel Lambert RN Ordering Provider:VINH SLOAN, Contact Number: [phone] BMI: 28.88 Baseline Rhythm: Sinus Rhythm Indications: PREOP, EXERTIONAL CHEST PAIN Medical History Medical History: Colitis, Asthma Cardiac Medications: Omeprazole, Albuterol sulfate inhaler Allergies: No known drug allergies Cardiac Risk Factors: FHX of CAD, Smoking (former) , Asthma Previous Cardiac Procedures: None Pretest Chest Pain Characteristics: No chest pain Exercise History: Indeterminate Physical Disabilities: None Lung Sounds: Clear to auscultation Heart Sounds: Regular Stress Test Details Test: Exercise stress testing was performed using a Andrea protocol. Rest Stress HR Resting HR Supine: 70 bpm Max Heart Rate (APMHR): 174 bpm Resting HR Standin bpm Target HR (85% APMHR): 147 bpm Max HR Achieved: 182 bpm % of APMHR: 104 Recovery HR: 96 bpm HR response to stress: Normal HR response to stress BP Resting BP Supine: 118/68 mmHg Resting BP Standin/68 mmHg Max BP: 182/86 mmHg Recovery BP: 142/68 mmHg BP response to stress: Normal blood pressure response to stress. ECG Resting ECG: Sinus Rhythm Ectopy: None Comment: mild diffuse ST elevations at baseline Stress ECG: Sinus Tachycardia ST Change: No significant ST segment changes noted Arrhythmia: PVCs Recovery ECG: Sinus Rhythm Recovery ST Change: No significant ST segment changes noted Recovery Arrhythmia: None Clinical Reason for Termination: Fatigue Stress Symptoms: General Fatigue Exercise duration: 10 min17 sec Highest Stage Reached: Stage 4: 4.2 mph at 16% grade. Exercise capacity: 12.26 METs Quigley Treadmill Score: 10 Rate Pressure Product: [id number] Stress ECG Conclusion 1. Resting electrocardiogram was within normal limits 2. Patient exercised on the Andrea protocol and completed a workload of 12.26 METS, stopping due to fa tigue 3. Normal heart rate and blood pressure response to exercise. The patient achieved 100% of predicted heart rate for age 4. There was no electrocardiographic evidence of myocardial ischemia 5. There were no significant dysrhythmias Quigley Treadmill Score is 10 which is Low risk. Stress Test Summary STAGE Time (mins) Speed (mph) Grade (%) HR BP SYMPTOMS METS Supine 70 118/68 Standing 81 124/68 1 3 1.7 10 108 138/82 4.6 2 6 2.5 12 129 168/84 7 3 9 3.4 14 167 172/88 10.2 1 min recovery 136 182/86 3 min recovery 98 168/64 6 min recovery 96 142/68
== END 2021-07-23 01:57 ==
PROVIDERS: PCP Physician Assistant Medical; Visit Provider Physical Therapy Assistant
DX: R07.89 Other chest pain (principal); Z01.818 Encounter for other preprocedural examination
CPT/HCPCS: 93017

== ENCOUNTER 2021-07-30 03:06 | Outpatient (CLI) | payer MEDICAID, SELFPAY ==
[2021-07-30 12:40] LABS: Source Nasal/Nares
[2021-07-30 16:06] LABS: COVID-19 PCR Negative (Negative)
== END 2021-07-30 03:07 | disposition home or self-care (01) ==
PROVIDERS: PCP Physician Assistant Medical; Visit Provider Surgery
DX: Z20.822 Contact with and (suspected) exposure to COVID-19 (principal); Z01.818 Encounter for other preprocedural examination
CPT/HCPCS: 87635

== ENCOUNTER 2021-08-01 09:49 | Day surgery (SDC) | payer MEDICAID, SELFPAY ==
--- NOTE | 2021-08-01 06:41 | COLE_ITS ---
Colonoscopy Report Date of procedure: 08/01/21 Pre-op diagnosis general: abdominal pain Post-op diagnosis procedure note: other (mild diverticulosis, polyps) Procedure: Colonoscopy with polypectomy Surgeon: Andie Panda Anesthesia Type: General:No Airway Estimated blood loss (mL): 3 Pathology: other (descending and sigmoid polyp) Complications: None Disposition: same day Indications: The patient is here for Colonoscopy pre-op. He has never had a Colonoscopy. He has no family history of colon cancer. He has been having severe abdominal pain and varied bowel movements for several months which is worsening in severity. Encouraged diet modification to include increasing fruit and vegetable intake.? Discussed ways to add high-protein snacks and meals.? Discussed the benefits of packing a lunch while on the go to ensure healthy options.? Also discussed increasing his water intake on a daily basis with a goal of 100 ounces a day.? Given the patient's symptoms of reflux, also discussed food groups and food types to avoid, to help reduce his symptoms.? Such as avoiding chocolate, caffeine, spicy foods and tomato based products.? Patient verbalized understanding and expressed that he would try these suggestions. Also discussed the option of trialling a low-dose omeprazole once a day at night, to see if this would improve his reflux symptoms.? Patient is agreeable to trying this despite his dislike for taking medications.? He will try this for 1 month and this provider will call to check in and see how this is helping. Given patient's complaints of chest pain on exertion and shortness of breath, patient will require having a stress test prior to his colonoscopy.? Upon further discussions patient did admit that he was supposed to previously have a stress test however he did not follow through with this.? He is unsure as to who may have order this prior.? He reports not seeing his primary care provider in almost 2 years.? Will order stress test and await these results prior to proceeding with? diagnostic colonoscopy. In the meantime the patient will initiate diet changes increase water intake and start taking omeprazole once a day. -Discussed colonoscopy bowel prep as well as the procedure. Discussed possible complications of the procedure to include bleeding, pain, perforation, missed small lesion/polyp, sore throat, aspiration and adverse reaction to the medications. Questions were answered to patient?s satisfaction. No guarantees we re implied or given. Prep: Miralax/Dulcolax Procedure Start Time: 11:40 Procedure End Time: 11:59 Retraction Time: 13 minutes Findings: 2 small polyps mild diverticulosis no inflammation Procedure Description: After informed consent was obtained the patient was taken to the procedure room and placed in a left decubitous position. Monitors were applied and a time out was done. The patients name, date of , procedure, allergies to medications and metal in their body was reviewed. The patient was then sedated. Once sedated and comfortable a rectal exam was done. External exam was normal. Internal exam revealed a normal sphincter tone and no palpable masses. The prostate felt normal. The scope was then introduced and retro-flexed. No internal hemorrhoids, polyps or masses were identified on retro-flexion. The scope was then advanced to the cecum without difficulty. The ileocecal vlave and appendiceal orifice were identified. The prep was adequate. The scope was then slowly retracted over 13 minutes back into the rectum. Polyps were removed with cold forceps in the descending colon and sigmoid colon. There was mild sigmoid diverticulosis noted. The scope was removed and the patient was woken up and taken back to Same day surgery in stable condition. The patient tolerated the procedure well and there were no immediate complications. Follow up: Start Omeprazole. Follow up in 2 weeks in the office
--- NOTE | 2021-08-01 06:43 | W.PM.DSUDISC ---
Discharge Plan Disposition Patient Disposition: HOME Condition: Good Discharge Details Reason For Visit: Colonoscopy Attending Provider: Andie Panda Primary Care Provider: Milad Santa Home Meds and New Rx's Prescriptions: New omeprazole 40 mg capsule,delayed release(DR/EC) 40 mg PO DAILY Qty: 30 0RF Continued cholecalciferol (vitamin D3) 25 mcg (1,000 unit) capsule 25 mcg PO DAILY 0RF ascorbate calcium (vitamin C) 500 mg tablet 500 mg PO DAILY 0RF naproxen sodium [Aleve] 220 MG tablet 440 mg PO DAILY 0RF Discharge Instructions Instructions: Diverticulosis (DC) Additional Instructions: Findings: 2 small polyps mild diverticulosis Follow up: 2-3 weeks Please call if you develop: fevers >101.5 Nausea or Vomiting Abdominal pain that is not transient Rectal bleeding that is more then a tbsp A hard abdomen and inability to pass gas DAY SURGERY UNIT POST ENDOSCOPY INSTRUCTIONS Instructions for everyone who is given Anesthesia: For your safety, please do the following for the next 24 Hours: a. Do not drive or operate dangerous equipment b. Do not drink alcohol beverages or use any recreational drugs for the first 24 hours or while taking pain medications. The medications in your body may have a reaction that can be dangerous. c. Do not make any important decisions or sign any important papers 1. Generally there are no restrictions on your activity after a day or so has gone by, but you may feel a bit fatigued for a few days. 2. After you arrive home you may have a light meal and return to a normal diet as you can tolerate it without feeling sick to your stomach. 3. After surgery, you may feel pain or discomfort. This should be only transient, but if it persists please contact your doctor. 4. If there are any questions regarding the findings of your procedure, please feel free to contact your doctor. 6. If you are unable to contact your doctor with a problem, contact the hospital at [phone]. 7. Continue all your regular medications unless directed otherwise. I understand the above instructions and have no questions. Signature of Patient or Responsible Adult Escort Date/Time Name of Responsible Adult Escort Signature of Nurse Date/Time Activity:: Activity as Tolerated Diet:: high fiber Discharge Orders Discharge Orders: Discharge Order (Routine); Ordered 08/01/21 Ordered By: Andie Panda
[2021-08-01 10:22] VITALS: BP 112/70; PULSE 87; RESP 16; TEMP 36.7; O2SAT 98
[2021-08-01] MEDS: Lactated Ringers 1,000 ML 80 ML IV (10:45)
--- NOTE | 2021-08-01 10:47 | W.ANESPRE ---
General Info Date of Service Date Performed: 08/01/21 Height: 6 ft 2 in Weight: 98.6 kg Body Mass Index (BMI): 27.8 Surgical Procedure: Operation Date: 08/01/21 11:50 Proposed Procedure Side Surgeon p Colonoscopy Andie Panda MD Meds Allergies and Home Medications Allergies Allergy/AdvReac Type Severity Reaction Status Date / Time No Known Drug Allergies Allergy Verified 08/01/21 10:18 Home Medication Medication Instructions Recorded naproxen sodium 220 mg tablet 440 mg PO DAILY 12/31/16 (Aleve) ascorbate calcium (vitamin C) 500 500 mg PO DAILY 07/12/21 mg tablet cholecalciferol (vitamin D3) 25 25 mcg PO DAILY 07/12/21 mcg (1,000 unit) capsule Current Visit Medications: Current Medications Generic Name Dose Route Start Last Admin Trade Name Freq PRN Reason Stop Dose Admin Hyoscyamine Sulfate 0.125 mg 08/01/21 06:44 Hyoscyamine 0.125 Mg Sl/Oral/Chew SL DIRECTED PRN Ringer's Solution 1,000 mls @ 80 mls/hr 08/01/21 06:00 IV 08/30/21 23:59 INFUSION [facility] IV Miscellaneous Supplies 1 each 08/01/21 06:00 Iv Access IV 08/30/21 23:59 DIRECTED CALEB Ondansetron HCl 4 mg 08/01/21 06:44 Ondansetron 4 Mg/2 Ml Vial IVP Q4H PRN PRN Nausea / Vomiting Sodium Chloride 0 ml 08/01/21 06:00 Normal Saline Flush 10 Ml Syr IV 08/30/21 23:59 PRN PRN Sodium Chloride 0 ml 08/01/21 06:00 Normal Saline 10 Ml Vial IJ 08/30/21 23:59 DIRECTED PRN Sterile Water 0 ml 08/01/21 06:00 Water,Injection,Sterile 10 Ml Vial IJ 08/30/21 23:59 DIRECTED PRN PFSH Active Problems Active Problems: Problem Status Onset Code Exertional chest pain R07.9 Pre-op testing Z01.818 Medical History Medical History (Updated 08/01/21 @ 10:33 by Mikey Aiken) Asthma GERD (gastroesophageal reflux disease) HX tobacco use Medical History Comments:: Pt. had exertional chest pain with NEGATIVE stress test 07/23/21. No current chest pain stated by patient at time of Pre-op. Surgical History Surgical History Arthroplasty of knee right x 2 or 3 Arthroscopy, Shoulder right Tobacco Smoking/Tobacco Use Status: Former Tobacco Use Alcohol Alcohol Intake: current Alcohol intake frequency: a few times a month Alcohol type: beer Substance Use Substance use: Never Substance use type: does not use Vital Signs and Lab Results Vital Signs Most Recent Vital Signs in EMR: Most Recent Vital Signs Temp Pulse Resp BP Pulse Ox 36.7 C 87 16 112/70 98 08/01/21 10:22 08/01/21 10:22 08/01/21 10:22 08/01/21 10:22 08/01/21 10:22 Lab Results Blood Type / Crossmatch: No Data to Display Complete Blood Count: White Blood Count 10.91 10^3/uL (4.4-10.8) H 07/02/21 11:57 07/02/21 Red Blood Count 5.20 10^6/uL (4.36-5.78) 07/02/21 11:57 07/02/21 Hemoglobin 15.1 g/dL (13.5-17.5) 07/02/21 11:57 07/02/21 Hematocrit 44.9 % (40.0-50.0) 07/02/21 11:57 07/02/21 Platelet Count 262 10^3/uL (130-400) 07/02/21 11:57 07/02/21 Complete Metabolic Panel: Sodium Level 141 mmol/L (136-145) 07/02/21 11:57 07/02/21 Potassium Level 3.4 mmol/L (3.5-5.1) L 07/02/21 11:57 07/02/21 Chloride Level 105 mmol/L (98-107) 07/02/21 11:57 07/02/21 Carbon Dioxide Level 26.4 mmol/L (21.0-32.0) 07/02/21 11:57 07/02/21 Blood Urea Nitrogen 13 mg/dL (7-18) 07/02/21 11:57 07/02/21 Creatinine 1.0 mg/dL (0.70-1.30) 07/02/21 11:57 07/02/21 Estimated GFR/1.73 m2 >= 60.00 (mL/min/1.73m2) 07/02/21 11:57 07/02/21 Magnesium Level 2.0 mg/dL (1.8-2.4) 07/02/21 11:57 07/02/21 Calcium Level 9.0 mg/dL (8.5-10.1) 07/02/21 11:57 07/02/21 Albumin 3.6 g/dL (3.4-5.0) 07/02/21 11:57 07/02/21 Glucose Level 129 mg/dL (74-106) H 07/02/21 11:57 07/02/21 C-Reactive Protein 0.89 mg/dL (0.0-0.3) H 07/02/21 11:57 07/02/21 Liver Function Panel: Alanine Aminotransferase (ALT/SGPT) 23 U/L (16-63) 07/02/21 11:57 07/02/21 Aspartate Amino Transf (AST/SGOT) 8 U/L (15-37) L 07/02/21 11:57 07/02/21 Coagulation Panel: No Data to Display Cardiac Panel: No Data to Display Arterial Blood Gas: No Data to Display Venous Blood Gas: No Data to Display Pancreas Panel: Lipase 61 U/L (73-393) 07/02/21 11:57 07/02/21 Thyroid Panel: No Data to Display Infectious Disease: Coronavirus (COVID-19)(PCR) Negative (Negative) 07/30/21 11:05 07/30/21 Coronavirus 2019 Source Nasal/Nares 07/30/21 11:05 07/30/21 Blood Cultures: No Data to Display Toxicology Panel: No Data to Display Anesthesia Assessment and Plan Anesthesia History Personal History: No History of Anesthesia Complications Family History: No Family History of Anesthesia Complications Exercise Tolerance Exercise Tolerance: Metabolic Equivalents>4 Pertinent Negatives Pertinent Negatives: No Symptoms of GERD, No Major Cardiovascular Symptoms or Complaints, No Major Pulmonary Symptoms or Complaints (Asthma mild- no limitations, quit smoking 1996) and No History of CVA/TIA Cardiac & Pulmonary Exam Cardiac Exam: Normal S1/S2 Heart Sounds Pulmonary Exam: Clear Bilateral Breath Sounds Implantable Cardiac Device Does patient have a Pacemaker or an ICD?: No Airway Exam Known Difficult Airway: No Mallampati Class: 1 Mouth Opening: Normal (> 3cm) Thyromental Distance: Greater than 3 cm Neck Range of Motion: Full ROM Neck Circumference: Normal Teeth Condition: Normal Dentition and Generalized Poor Dentition Airway Comments: #21/chipped ASA Classification ASA Score: ASA 2 Emergency Case?: No NPO Status NPO Status: NPO Clears >2 hours, Solids >8 hours Anesthesia Plan Resuscitation Status: Full Code Anesthesia Technique: General Anesthesia Airway Planned: Natural Airway Monitors Used: Standard Monitors
[2021-08-01 10:50] VITALS: BMI 27.8
--- NOTE | 2021-08-01 11:54 | BOWEL_PTH ---
PATIENT: Dhiraj Fonseca LOC: [place] U#:[id number] AGE/SX: 46/M ROOM: RE08/01/[address]: Andie Panda MD : [id number] BED: DIS: 08/01/2021 SPEC #: [id number] RECD: 08/01/21 12:57 STATUS: ABDELRAHMAN REQ #: [id number] LAW: 08/01/21 11:[address]: Andie Panda DEPT: Surgical Specimen RECD BY: Susan Lancaster ENTERED: 08/01/21 12:58 SP TYPE: Bowel OTHR DR: Milad Santa Tissues: 1 - BIOPSY BOWEL 2 - BIOPSY BOWEL Procedures: GROSS AND MICRO LEVEL 4 Comments: [id number]
[2021-08-01 12:09] VITALS: PULSE 75; RESP 16; TEMP 36.6; O2SAT 96
--- NOTE | 2021-08-01 12:13 | W.ANESPOSTOP ---
Postoperative Evaluation Date, Time and Location Date Performed: 08/01/21 Time Performed: 12:13 Patient Location: Day Surgery Unit Vital Signs Most Recent Imported Vital Signs: Most Recent Vital Signs Temp Pulse Resp BP Pulse Ox 36.7 C 87 16 112/70 98 08/01/21 10:22 08/01/21 10:22 08/01/21 10:22 08/01/21 10:22 08/01/21 10:22 Most Recent Manually Entered Vital Signs: Adult Blood Pressure: 100/71 Heart Rate: 74 Respirations: 12 Oxygen Saturation (%): 96 Temperature (C): 36.3 C Pain Score (0-10 Scale): 0 Pain Score Most Recent Pain Score: Most Recent Pain Score Pain Level 0 08/01/21 10:22 Assessment Mental Status: Awake (Alert & Oriented to Patient Baseline) Airway and Respiratory Function: Patent airway with normal (patient baseline) respiratory exam Cardiovascular Function: Hemodynamically Stable Hydration Status: Adequately Hydrated Nausea & Vomiting: No Nausea or Vomiting Pain: Pt. Denies Any Pain Peripheral Nerve Block: Patient did not receive a nerve block
[2021-08-01 12:14] VITALS: BP 100/71; PULSE 74; RESP 12; TEMPC 36.3; O2SAT 96
[2021-08-01 12:37] VITALS: BP 119/63; PULSE 74; RESP 16; TEMP 36.5; O2SAT 99
== END 2021-08-01 13:38 | disposition home or self-care (01) ==
LOC: SUR 09:49
PROVIDERS: PCP Physician Assistant Medical; Visit Provider Surgery
PROC: 0DJD8ZZ Inspection of Lower Intestinal Tract, Via Natural or Artificial Opening Endoscopic (ICD-10-PCS; CPT 45378; principal; 2021-08-01 11:45)
DX: R10.9 Unspecified abdominal pain (principal); R19.4 Change in bowel habit; K57.30 Diverticulosis of large intestine without perforation or abscess without bleeding; K63.5 Polyp of colon; K63.89 Other specified diseases of intestine
CPT/HCPCS: 45380; 88305

== ENCOUNTER 2022-07-22 13:20 | Outpatient (CLI) | payer MEDICAID, SELFPAY ==
--- NOTE | 2022-07-22 | DI.CT_ITS ---
Exam(s) CT ABDOMEN PELVIS W EXAM: CT ABDOMEN PELVIS W CLINICAL HISTORY: LLQ ABD PAIN R10.32 HX DIVERTICULOSIS COLON. TECHNIQUE: Imaging Protocol: Axial computed tomography images with coronal and sagittal reformatted images were created and reviewed CONTRAST MATERIAL: Intravenous: Omnipaque-350 100cc Oral: None COMPARISON: CT CT ABDOMEN PELVIS W from 07/02/2021 FINDINGS: VISUALIZED LUNG BASES: Scarring left lung base again noted. No pleural effusions.. ABDOMEN: There is no ascites. LIVER: There are no focal hepatic lesions evident. No dilated intrahepatic ducts. GALLBLADDER/BILIARY: Subtle density at level gallbladder fundus noted. Recommend follow-up ultrasoun d. CBD is not dilated. PANCREAS: No evidence of pancreatic mass nor dilatation of the pancreatic duct. SPLEEN: Spleen is not enlarged. No obvious intrasplenic lesions. Round splenule medial to the splee n is unchanged. Splenic and portal veins are patent. ADRENALS: There are no significant adrenal masses. KIDNEYS:No cysts evident. No solid renal masses. No calculi nor hydronephrosis.. ABDOMINAL AORTA: Abdominal aorta is not enlarged. LYMPH NODES:There is no retroperitoneal nor paraaortic adenopathy. ABDOMINAL WALL: No evidence of significant anterior abdominal wall nor inguinal hernia. GI: There is no evidence of bowel obstruction, free air, nor abscess. However, there is a fat halo sign evident in multiple continuous mid-distal small bowel loops as well as throughout most of the colon. Suspicious for element of chronic inflammatory bowel disease. PELVIS: GI: No evidence of appendicitis.No evidence of sigmoid diverticulitis. LYMPH NODES: There is no intrapelvic nor inguinal adenopathy. REPRODUCTIVE: Some calcification noted in the prostate. Prostate gland is not enlarged. Seminal ves icles unremarkable. URINARY BLADDER: No calculi nor obvious masses evident OSSEOUS: No fractures and no significant osseous lesions. Sacroiliac joints unremarkable. IMPRESSION: 1. There is fatty low sign evident in mid-distal small bowel loops and throughout most of the colon. Although this can sometimes be a normal finding, it is also seen in chronic inflammatory bowel disea se. Recommend colonoscopy with entrance into the affected terminal ileum. 2. No bowel obstruction. No free air. No abscess. 3. No ascites evident. 4. RADIATION DOSE DELIVERED: 1,250.19mGy.cm Total DLP DATA REPOSITORY: All CT scans at this facility are submitted to the National Radiology Data Registry (NRDR) Dose Index Registry (DIR) with the [employer] ([employer]). RADIATION OPTIMIZATION: All CT scans at this facility use at least one of these dose optimization te chniques: automated exposure control; mA and/or kV adjustment per patient size (includes targeted exa ms where dose is matched to clinical indication); or iterative reconstruction.
[2022-07-22] MEDS: Barium Sulfate 2% W/V-Berry Smoothie 450 ML BTL PO (12:43)
[2022-07-22 13:08] LABS: Abs Immature Grans 0.01 10^3/uL (0.0-0.06); Absolute Basophil Count 0.03 10^3/uL (0.0-0.2); Absolute Lymphocyte Count 0.59 10^3/uL (1.2-3.4); Absolute Monocyte Count 0.65 10^3/uL (0.1-0.8); Absolute Neutrophil Count 6.47 10^3/uL (1.2-6.7); Basophils % 0.4; HCT 46.4 % (40.0-50.0); HGB 16.3 g/dL (13.5-17.5); Immature Grans % 0.1; Lymphocytes % 7.6; MCH 29.7 pg (27.0-33.0); MCHC 35.1 % (32.0-36.0); MCV 85 fL (80-95); MPV 9.4 fL (8.0-11.0); Monocytes % 8.4; Neutrophils % 83.5; Platelet Count 205 10^3/uL (130-400); RBC 5.48 10^6/uL (4.36-5.78); RDW 12.4 % (11.8-14.1); RDW-SD 38.5 fL; WBC 7.75 10^3/uL (4.4-10.8)
[2022-07-22 13:09] LABS: ESR 10 mm/hr (0-15)
[2022-07-22 13:23] LABS: ALT 32 U/L (16-63); AST 23 U/L (15-37); Albumin 3.9 g/dL (3.4-5.0); Alkaline Phosphatase 69 U/L (46-116); Anion Gap 10.3 mmol/L (3-11); BUN 10 mg/dL (7-18); Bilirubin, Total 0.6 mg/dL (0.2-1.0); C-Reactive Protein 7.52 mg/dL (0.0-0.3); CO2 25.7 mmol/L (21.0-32.0); CREATININE 1.2 mg/dL (0.70-1.30); Calcium 8.7 mg/dL (8.5-10.1); Chloride 104 mmol/L (98-107); Estimated GFR 75.53 (mL/min/1.73m2); Glucose 110 mg/dL (74-106); Potassium 3.6 mmol/L (3.5-5.1); Sodium 140 mmol/L (136-145); Total Protein 7.9 g/dL (6.4-8.2)
[2022-07-22] MEDS: Omnipaque 350 MG/ML 500 ML BTL-Imaging package IJ (15:10)
== END 2022-07-22 13:40 ==
LOC: DI 13:21
PROVIDERS: PCP Physician Assistant Medical; Visit Provider Nurse Practitioner Family
DX: R10.32 Left lower quadrant pain (principal); K82.8 Other specified diseases of gallbladder; K63.89 Other specified diseases of intestine; Z87.19 Personal history of other diseases of the digestive system; R79.82 Elevated C-reactive protein (CRP)
CPT/HCPCS: 80053; 85652; 74177; 85025; 86140

== ENCOUNTER 2024-01-20 22:04 | Outpatient (REF) | payer SELFPAY | END 2024-01-20 22:05 | disposition home or self-care (01) | LOC: LBN 22:04 | PROVIDERS: PCP Physician Assistant Medical; Visit Provider Nurse Practitioner Family | DX: J06.9 Acute upper respiratory infection, unspecified (principal) | CPT/HCPCS: 87070 ==

== ENCOUNTER 2024-09-22 15:10 | Emergency (ER) | payer OTHER, SELFPAY ==
[2024-09-22] VITALS (31 sets, daily range): BP systolic 124–143; BP diastolic 75–88; PULSE 63–84; RESP 14–21; TEMP 36.4; O2SAT 96–97
--- NOTE | 2024-09-22 15:00 | RT.EKG_ITS ---
APPROVED REPORT Exam: Resting ECG Reason for Exam: Chest Pain Patient Location: E HR:77 bpm ECG Measurements Heart Rate 77 AXIS MO 166 P 58 QRSd 81 QRS 52 QT 374 T 27 QTc 425 Conclusion Sinus rhythm...normal P axis, V-rate 60- 99 Sinus Rhythm. No prior. WD
[2024-09-22 16:10] LABS: Abs Immature Grans 0.02 10^3/uL (0.0-0.06); Absolute Basophil Count 0.04 10^3/uL (0.0-0.2); Absolute Eosinophil Count 0.11 10^3/uL (0.0-0.7); Absolute Lymphocyte Count 1.51 10^3/uL (1.2-3.4); Absolute Monocyte Count 0.41 10^3/uL (0.1-0.8); Absolute Neutrophil Count 3.35 10^3/uL (1.2-6.7); Basophils % 0.7 %; HCT 44.9 % (40.0-50.0); HGB 15.4 g/dL (13.5-17.5); Immature Grans % 0.4 %; Lymphocytes % 27.8 %; MCHC 34.3 % (32.0-36.0); MCV 85 fL (80-95); MPV 8.9 fL (8.0-11.0); Monocytes % 7.5 %; Neutrophils % 61.6 %; Platelet Count 246 10^3/uL (130-400); RBC 5.31 10^6/uL (4.36-5.78); RDW 12.4 % (11.8-14.1); RDW-SD 37.2 fL; WBC 5.44 10^3/uL (4.4-10.8)
[2024-09-22 16:29] LABS: ALT 27 U/L (16-63); AST 20 U/L (15-37); Albumin 4.1 g/dL (3.4-5.0); Alkaline Phosphatase 76 U/L (46-116); Anion Gap 8.6 mmol/L (3-11); BUN 13 mg/dL (7-18); Bilirubin, Total 0.4 mg/dL (0.2-1.0); CO2 26.4 mmol/L (21.0-32.0); CREATININE 1.1 mg/dL (0.70-1.30); Chloride 105 mmol/L (98-107); Estimated GFR 82.29 (mL/min/1.73m2); Glucose 97 mg/dL (74-106); Potassium 3.7 mmol/L (3.5-5.1); Sodium 140 mmol/L (136-145); Total Protein 7.7 g/dL (6.4-8.2); Troponin I 8 ng/L (<or=76)
[2024-09-22 16:42] LABS: D-Dimer 290 ng/mlFEU (<500)
--- NOTE | 2024-09-22 16:45 | DI.RAD_ITS ---
Exam(s) XR CHEST 2V PA LATERAL EXAM: XR CHEST 2V PA LATERAL CLINICAL HISTORY: chest pain TECHNIQUE: 2D digital imaging was performed. Two views. COMPARISON: CR CHEST 2 VIEWS PA,LAT from 01/08/2015 FINDINGS: HEART: Normal size. Aorta: Not dilated. PULMONARY VASCULATURE: Normal. MEDIASTINUM: Unremarkable. LUNGS: Clear. PLEURAL SPACE: No pleural effusion or pneumothorax. BONE:Unremarkable for age. SOFT TISSUES: Unremarkable. IMPRESSION: No acute abnormality. DATA REPOSITORY: RADIATION DOSE DELIVERED:
--- NOTE | 2024-09-22 17:44 | ED.GENADUL_ITS ---
Discharge Plan Disposition Patient Disposition: Home Condition: Stable Discharge Details Clinical Impression: Chest pain of uncertain etiology Primary Care Provider: [facility] ED Provider: Nithin La Home Meds and New Rx's Prescriptions: Continued cholecalciferol (vitamin D3) 25 mcg (1,000 unit) capsule 25 mcg PO DAILY ascorbate calcium (vitamin C) 500 mg tablet 500 mg PO DAILY naproxen sodium [Aleve] 220 MG tablet 440 mg PO DAILY omeprazole 40 mg capsule,delayed release(DR/EC) 40 mg PO DAILY Qty: 30 0RF Discharge Instructions Instructions: Chest Pain, Adult ED Additional Instructions: You were seen in the emergency department for left-sided chest pain, your cardiac workup is negative, there is no blood clot in your lungs ruled out by blood test, there is no damage to the heart occurring in your EKG has no emergent concerns, please follow-up with your primary care provider for referral to cardiology to redo your baseline cardiac studies within the next 90 days, please return to the emergency department for any severe increase in chest pain with shortness of breath, dizziness, near fainting or other emergent concerns Referrals: [place] [place] [Primary Care Provider] - Discharge Data Discharge Date/Time-TO BE ENTERED AT DEPARTURE: 09/22/24 18:56 HPI General Date/Time Provider Initiated Documentation: 09/22/24 15:42 . HPI Narrative: 49 year-old male presents to ED today by POV/ambulating with a chief complaint of L sided chest pain, pressure with onset Friday- 3 days ago. Quality described as mild shortness of breath and chest pain, mostly L axillary area and upper chest, no radiation to syncope, dizziness, diaphoresis, nausea/vomiting, fever, cough, abdominal pain. Severity is described as moderate. Palliating factors include nothing specific. Provoking factors include nothing specific. Events leading up to the incident/Associated Symptoms: Patient denies any cardiac history. Patient not anticoagulated. Related Data Home Medications ?Medication ?Instructions ?Recorded ?Confirmed naproxen sodium 220 mg tablet 440 mg PO DAILY 12/31/16 09/22/24 (Aleve) ascorbate calcium (vitamin C) 500 500 mg PO DAILY 07/12/21 09/22/24 mg tablet cholecalciferol (vitamin D3) 25 25 mcg PO DAILY 07/12/21 09/22/24 mcg (1,000 unit) capsule omeprazole 40 mg capsule,delayed 40 mg PO DAILY #30 caps 08/01/21 09/22/24 release Previous Rx's ?Medication ?Instructions ?Recorded omeprazole 40 mg capsule,delayed 40 mg PO DAILY #30 caps 08/01/21 release Allergies Allergy/AdvReac Type Severity Reaction Status Date / Time No Known Allergies Allergy Unverified 09/22/24 15:38 General Stated Complaint: Chest Pain DOMENICA: 3 Review of Systems All systems reviewed & are unremarkable except as noted in HPI and below Exam Narrative Exam Narrative: GENERAL APPEARANCE: Well-nourished, non-toxic, awake and alert, atraumatic, no acute distress. SKIN: Warm, pink, dry, intact, without rashes/lesions/ulcerations. HEAD: Normocephalic, atraumatic, normal hair distribution for gender/age. EYES: Normal conjunctiva, no exudates on lids/lashes. ENT: Nares patent, no circumoral cyanosis, no facial swelling NECK: Supple, trachea midline, painless cervical ROM. LUNGS/CHEST: Lungs CTA bilaterally, non-labored respirations, normal A/P diameter, symmetrical expansion, no chest wall deformity HEART (CV/PV): Regular rate and rhythm without murmur, no peripheral edema, no JVD. ABDOMEN: Soft, non-distended, no guarding. MSK: Normal ROM, no swelling/deformity to bilateral UEs or LEs, moving all extremities without weakness, no cyanosis, spine midline without tenderness, normal curvature. NEURO: Mental Status AAOx4 - alert to person, place, time, events No facial droop, no forehead involvement. Motor: No focal weakness - strength 5/5 in bilateral UEs and LEs, proximal and distal, symmetric. Sensory: sensation intact to light touch globally. Gait normal: patient ambulated without ataxia into ED room. PSYCH: euthymic, cooperative, pleasant, appropriate speech Course Vital Signs Vital signs: Vital Signs Temperature 36.4 C 09/22/24 15:16 Pulse 72 09/22/24 15:16 Respiratory Rate 14 09/22/24 15:16 Blood Pressure 143/81 H 09/22/24 15:16 Pulse Oximetry 97 09/22/24 15:16 Temperature 36.4 C 09/22/24 15:16 Temperature Source Oral 09/22/24 15:16 Pulse 72 09/22/24 15:16 Respiratory Rate 14 09/22/24 15:16 Blood Pressure 143/81 H 09/22/24 15:16 Blood Pressure Position Sitting 09/22/24 15:16 Pulse Oximetry 97 09/22/24 15:16 Oxygen Delivery Method Room Air 09/22/24 15:16 Oxygen Flow Rate 0 09/22/24 15:16 Pain Level 5 09/22/24 15:16 Lab/Test Results Lab/Test Results: Laboratory Tests Range/Units 09/22/24 16:05 WBC (4.4-10.8) 10^3/uL 5.44 RBC (4.36-5.78) 10^6/uL 5.31 Hgb (13.5-17.5) g/dL 15.4 Hct (40.0-50.0) % 44.9 MCV (80-95) fL 85 MCH (27.0-33.0) pg 29.0 MCHC (32.0-36.0) % 34.3 RDW (11.8-14.1) % 12.4 Plt Count (130-400) 10^3/uL 246 MPV (8.0-11.0) fL 8.9 Immature Gran % % 0.4 Neutrophils % % 61.6 Lymphocytes % % 27.8 Monocytes % % 7.5 Eosinophils % % 2.0 Basophils % % 0.7 Nucleated RBC % (0.0-0.3) % 0.0 Absolute Neutrophils (1.2-6.7) 10^3/uL 3.35 Absolute Lymphocytes (1.2-3.4) 10^3/uL 1.51 Absolute Monocytes (0.1-0.8) 10^3/uL 0.41 Absolute Eosinophils (0.0-0.7) 10^3/uL 0.11 Absolute Basophils (0.0-0.2) 10^3/uL 0.04 D-Dimer (<500) ng/mlFEU 290 Sodium (136-145) mmol/L 140 Potassium (3.5-5.1) mmol/L 3.7 Chloride (98-107) mmol/L 105 Carbon Dioxide (21.0-32.0) mmol/L 26.4 Anion Gap (3-11) mmol/L 8.6 BUN (7-18) mg/dL 13 Creatinine (0.70-1.30) mg/dL 1.1 Est GFR (CKD-EPI 2020) (mL/min/1.73m2) 82.29 Glucose (74-106) mg/dL 97 Calcium (8.5-10.1) mg/dL 9.0 Magnesium (1.8-2.4) mg/dL 2.0 Total Bilirubin (0.2-1.0) mg/dL 0.4 AST (15-37) U/L 20 ALT (16-63) U/L 27 Alkaline Phosphatase (46-116) U/L 76 Troponin I (<or=76) ng/L 8 Total Protein (6.4-8.2) g/dL 7.7 Albumin (3.4-5.0) g/dL 4.1 Medical Decision Making This dictation utilizes [id number] dictation software and may contain unedited grammatical errors. 49 year-old male presents to ED today by POV/ambulating with a chief complaint of L sided chest pain, pressure with onset Friday- 3 days ago. Quality described as mild shortness of breath and chest pain, mostly L axillary area and upper chest, no radiation to syncope, dizziness, diaphoresis, nausea/vomiting, fever, cough, abdominal pain. Severity is described as moderate. Palliating factors include nothing specific. Provoking factors include nothing specific. Events leading up to the incident/Associated Symptoms: Patient denies any cardiac history. Patients' medical history: Negative, otherwise healthy. Family and social history: Noncontributory. Pertinent exam findings / vital signs include benign cardiopulmonary exam, benign abdomen, nontoxic and afebrile. Differential / pathologies of concern include ACS, PE, pancreatitis, pneumonia, costochondritis, exertional chest pain, chest pain of unknown cause. Diagnostic studies of: - CBC, CMP, D-dimer, magnesium, serial troponin, XR chest, EKG - CBC shows no acute abnormality - D-dimer negative - CMP without any abnormality - Magnesium within normal limits - Serial troponins negative with reliable onset - X-ray chest shows no acute abnormality - EKG shows normal sinus rhythm without any ST changes of ischemia, normal axis, normal intervals, no arrhythmia or heart block Interventions of: -324 CH ASA, 1g PO Tylenol. ED Course/Assessment/Plan: 49-year-old male with no cardiac history presents with 3 days of left-sided chest pressure, moderate degree without diaphoresis, endorses mild shortness of breath, states has had it in echo and stress test in the past that were normal, and his workup shows no signs of ACS, D-dimer is negative, no evidence for PE, x-ray chest is benign, I counseled him on following up with outpatient cardiology visit due to a low heart score, strict return criteria for any acute worsening, advised to start taking daily 81 mg baby aspirin. Findings not consistent with ACS, PE, pneumonia, arrhythmia. Disposition of Chest Pain of Uncertain Etiology. Patient verbalized understanding of the plan and return to ED criteria and enga ged in shared decision making. Medical Records Medical records reviewed: Yes I reviewed the patient's medical records. Imaging Data Radiologic Study: Attestation: I personally reviewed and interpreted this imaging study as follows: Imaging: X-Ray Radiologist's impression: EXAM: XR CHEST 2V PA LATERAL CLINICAL HISTORY: chest pain TECHNIQUE: 2D digital imaging was performed. Two views. COMPARISON: CR CHEST 2 VIEWS PA,LAT from 01/08/2015 FINDINGS: HEART: Normal size. Aorta: Not dilated. PULMONARY VASCULATURE: Normal. MEDIASTINUM: Unremarkable. LUNGS: Clear. PLEURAL SPACE: No pleural effusion or pneumothorax. BONE:Unremarkable for age. SOFT TISSUES: Unremarkable. IMPRESSION: No acute abnormality. Lab Data Lab results reviewed: Yes I reviewed the patient's lab results. Labs: Laboratory Tests Range/Units 09/22/24 09/22/24 16:05 17:34 WBC (4.4-10.8) 10^3/uL 5.44 RBC (4.36-5.78) 10^6/uL 5.31 Hgb (13.5-17.5) g/dL 15.4 Hct (40.0-50.0) % 44.9 MCV (80-95) fL 85 MCH (27.0-33.0) pg 29.0 MCHC (32.0-36.0) % 34.3 RDW (11.8-14.1) % 12.4 Plt Count (130-400) 10^3/uL 246 MPV (8.0-11.0) fL 8.9 Immature Gran % % 0.4 Neutrophils % % 61.6 Lymphocytes % % 27.8 Monocytes % % 7.5 Eosinophils % % 2.0 Basophils % % 0.7 Nucleated RBC % (0.0-0.3) % 0.0 Absolute Neutrophils (1.2-6.7) 10^3/uL 3.35 Absolute Lymphocytes (1.2-3.4) 10^3/uL 1.51 Absolute Monocytes (0.1-0.8) 10^3/uL 0.41 Absolute Eosinophils (0.0-0.7) 10^3/uL 0.11 Absolute Basophils (0.0-0.2) 10^3/uL 0.04 D-Dimer (<500) ng/mlFEU 290 Sodium (136-145) mmol/L 140 Potassium (3.5-5.1) mmol/L 3.7 Chloride (98-107) mmol/L 105 Carbon Dioxide (21.0-32.0) mmol/L 26.4 Anion Gap (3-11) mmol/L 8.6 BUN (7-18) mg/dL 13 Creatinine (0.70-1.30) mg/dL 1.1 Est GFR (CKD-EPI 2020) (mL/min/1.73m2) 82.29 Glucose (74-106) mg/dL 97 Calcium (8.5-10.1) mg/dL 9.0 Magnesium (1.8-2.4) mg/dL 2.0 Total Bilirubin (0.2-1.0) mg/dL 0.4 AST (15-37) U/L 20 ALT (16-63) U/L 27 Alkaline Phosphatase (46-116) U/L 76 Troponin I (<or=76) ng/L 8 7 Total Protein (6.4-8.2) g/dL 7.7 Albumin (3.4-5.0) g/dL 4.1 Quality:[facility] Health Related Social Needs: No Data to Display PFSH All Active Problems (Updated 09/22/24 @ 18:18 by ASCENCION Roe) Chest pain of uncertain etiology (Acute) Exertional chest pain (Acute) Pre-op testing (Acute) Medical History (Updated 09/22/24 @ 18:18 by ASCENCION Roe) Hyperplastic colon polyp GERD (gastroesophageal reflux disease) Asthma HX tobacco use Surgical History (Updated 08/10/21 @ 12:39 by Luciana Skinner RN) History of colonoscopy (~08/2021) Arthroscopy, Shoulder right Arthroplasty of knee right x 2 or 3 Social History Smoking/Tobacco Use Status: Former Tobacco Use Quit Date: 05/05/96 Smoking risk assessment performed?: Yes Alcohol Intake: current Alcohol Intake frequency: a few times a month Alcohol type: beer Drug use: Never Substance use type: does not use Housing: house Do you feel safe at home: Yes Do you feel safe in your relationship?: Yes
[2024-09-22 18:00] LABS: Troponin I 7 ng/L (<or=76)
[2024-09-22] MEDS: Aspirin 81 MG CHEW 324 MG CH (18:41)
[2024-09-22] MEDS: Acetaminophen 500 MG TAB 1000 MG PO (18:42)
== END 2024-09-22 18:56 | disposition home or self-care (01) ==
PROVIDERS: Emergency Medicine Emergency Medical Services; Emergency Provider Physician Assistant
DX: R07.9 Chest pain, unspecified (principal)
CPT/HCPCS: 99284 ×2; 36415; 80053; 93005; 71046; 83735; 84484; 85025; 85379; 93010